=== PATIENT | female | born 1995 | race Caucasian/White ===

== ENCOUNTER → 2020-08-13 | Outpatient (REF) | payer OTHER ==
[2020-08-13 17:19] LABS: HCG, SERUM QUALITATIVE NEGATIVE (NEGATIVE)
[2020-08-13 17:30] LABS: HCG, SERUM QUANTITATIVE < 1.0 MIU/ML
== END ==
LOC: M LAB REF 16:20
PROVIDERS: ATTEND Physician Assistant Medical
DX: Z32.00 Encounter for pregnancy test, result unknown (principal)

== ENCOUNTER 2020-11-29 16:48 | Emergency (ER) | payer OTHER ==
[~2020-11-29] VITALS: Ht 165.1 cm; Wt 107.6 kg
[2020-11-29 16:49] VITALS: BP 137/76
[2020-11-29] MEDS ORDERED: BOOSTRIX/ADACEL VACCINE (DIPHTH/PERTUSS/ACELL/TETANUS) 0.5ML SYR IM ONE (19:55)
--- NOTE | 2020-11-29 21:25 | REPVR ---
PROCEDURE INFORMATION: Exam: XR Left Hand Exam date and time: 11/29/2020 8:04 PM Age: 25 years old Clinical indication: Injury or trauma; Other: Broken glass; Wound; Hand; Left; Additional info: Pain after cut with broken glass, R/O foreign body TECHNIQUE: Imaging protocol: XR Left hand. Views: 3 or more views. COMPARISON: No relevant prior studies available. FINDINGS: Bones/joints: Normal. Soft tissues: Normal. IMPRESSION: No acute findings. Electronically signed by: Tod Weaver On 11/29/2020 21:24:22 PM
== END 2020-11-29 21:26 | disposition home or self-care (01) ==
LOC: M ED 16:48
DX: S60.512A Abrasion of left hand, initial encounter (principal); S80.212A Abrasion, left knee, initial encounter; W25.XXXA Contact with sharp glass, initial encounter; Y92.89 Other specified places as the place of occurrence of the external cause; Y93.9 Activity, unspecified; Y99.0 Civilian activity done for income or pay; F17.290 Nicotine dependence, other tobacco product, uncomplicated

== ENCOUNTER 2021-12-07 10:37 | Inpatient (IN) | payer OTHER ==
[2021-12-07] VITALS (12 sets, daily range): BP systolic 111–148; BP diastolic 62–100
[~2021-12-07] VITALS: Ht 165.1 cm; Wt 122.5 kg
[2021-12-07] MEDS ORDERED: OXYTOCIN DRIP 30 UNITS in IV 1 EA IV PRN ×4 (12:30)
[2021-12-07] MEDS ORDERED: LIDOCAINE 1% MDV 20ML VIAL INFIL PRN (12:30)
[2021-12-07] MEDS ORDERED: TRANEXAMIC ACID INJection 1,000 MG in NS 100 ML IV PRN (12:30)
[2021-12-07] MEDS ORDERED: METHYLERGONOVINE MALEATE 0.2 MG/ML VIAL (J2210) IM PRN (12:30)
[2021-12-07] MEDS ORDERED: CARBOPROST TROMETHAMINE 250 MCG/ML AMP IM PRN (12:30)
[2021-12-07] MEDS ORDERED: OXYTOCIN INJ 10 UNITS/ML VIAL (J2590) IM PRN (12:30)
[2021-12-07] MEDS ORDERED: IRON1TAB2 PO (13:04)
[2021-12-07] MEDS ORDERED: PRENTAB9 PO (13:04)
[2021-12-07] MEDS ORDERED: COLA100C5 PO (13:04)
[2021-12-07] MEDS ORDERED: VITA100T59 PO (13:04)
[2021-12-07] MEDS ORDERED: TUMS500C PO (13:04)
[2021-12-07] MEDS ORDERED: ACET-897 PO (13:04)
[2021-12-07] MEDS ORDERED: LOVE1INJ SC (13:04)
[2021-12-07] MEDS: miSOPROStol 50MCG 1/2 TABLET PO PRN ×2 (13:28→17:47)
[2021-12-07 13:37] LABS: HEMATOCRIT 33.2 % (36.0-47.0); HEMOGLOBIN 11.3 g/dl (12.0-15.5); MEAN CORPUSCULAR VOLUME 88.1 fl (80.0-96.0); PLATELET COUNT, AUTOMATED 218 10^3/uL (150-450); RED BLOOD COUNT 3.77 10^6/uL (4.00-5.40)
[2021-12-07 14:46] LABS: CREATININE,RANDOM URINE 40.5 MG/DL
[2021-12-07] MEDS ORDERED: LR 1,000 ML IV ONE (22:50)
[2021-12-07] MEDS ORDERED: diphenhydrAMINE 50MG/ML VIAL (J1200) IV PRN (23:35)
[2021-12-07] MEDS ORDERED: EPIDURAL/PCA KEYS XX PRN (23:35)
[2021-12-07] MEDS ORDERED: LR 500 ML IV PRN (23:35)
[2021-12-07] MEDS ORDERED: ONDANSETRON 4MG 2ML VIAL IV PRN (23:35)
[2021-12-07] MEDS ORDERED: NALOXONE INJ 0.4MG/1ML VIAL (J2310 PER 1MG) IV PRN (23:35)
[2021-12-07] MEDS ORDERED: FENTANYL 2MCG/ML ROPIVACAINE 0.2% IN 0.9% NACL 100ML IVBAG As Ordered ONE (23:36)
[2021-12-08] VITALS (60 sets, daily range): BP systolic 76–144; BP diastolic 50–86
[2021-12-08] MEDS: FENTANYL/ROPIVACAINE/NACL BAG 100 ML EPIDURAL SCH ×2 (00:32→08:38)
[2021-12-08] MEDS ORDERED: OXYTOCIN DRIP 30 UNITS in IV 1 EA IV SCH ×3 (01:05→13:00)
[2021-12-08] MEDS: LR 1,000 ML IV SCH ×2 (02:04→06:50)
[2021-12-08] MEDS ORDERED: CALCIUM CARBONATE 500 MG CHEW U/D PO ONE (04:00)
[2021-12-08] MEDS: ePHEDrine SULFATE 25 MG/5 ML(5MG/ML) SYRINGE IVP PRN ×3 (04:31→04:39)
[2021-12-08] MEDS ORDERED: DOCUSATE SODIUM 100MG CAPSULE PO PRN (12:25)
[2021-12-08] MEDS ORDERED: ACETAMINOPHEN TAB 650MG DOSE (2X325MG) PO PRN (12:25)
[2021-12-08] MEDS ORDERED: RHOGAM 300 MCG (1500 IU) INJ (J2790) IM SCH (12:25)
[2021-12-08] MEDS ORDERED: DIBUCAINE 1% OINTMENT 30GM TOP PRN (12:25)
[2021-12-08] MEDS ORDERED: TRANEXAMIC ACID INJection 1,000 MG in NS 100 ML IV ONE (12:25)
[2021-12-08] MEDS ORDERED: ANUSOL HC CREAM 30GM TOP PRN (12:25)
[2021-12-08] MEDS ORDERED: ACETAMINOPHEN 500 MG TAB PO PRN (12:25)
[2021-12-08] MEDS ORDERED: OXYTOCIN INJ 10 UNITS/ML VIAL (J2590) IV ONE (12:25)
[2021-12-08] MEDS ORDERED: LR 1,000 ML IV SCH (12:25)
[2021-12-08] MEDS ORDERED: METHYLERGONOVINE MALEATE 0.2 MG TAB PO PRN (12:25)
[2021-12-08] MEDS ORDERED: MOM 30ML SUSPENSION UDC PO PRN (12:25)
[2021-12-08 12:59] LABS: CORD GAS ABE A -5.9; CORD GAS HCO3 A 19.8 MEQ/L; CORD GAS O2 SAT A 69.2 %; CORD GAS PH A 7.313 UNITS; CORD GAS PO2 A 28.4 mmHg; CORD GAS TCO2 A 21.1 MEQ/L
[2021-12-08 13:01] LABS: CORD GAS ABE V -6.5; CORD GAS HCO3 V 19.1 MEQ/L; CORD GAS O2 SAT V 66.3 %; CORD GAS PCO2 V 38.9 mmHg; CORD GAS PH V 7.31 UNITS; CORD GAS PO2 V 27.7 mmHg; CORD GAS SBC V 18.5 MEQ/L; CORD GAS TCO2 V 20.3 MEQ/L
[2021-12-08] MEDS: IBUPROFEN 600MG TAB PO PRN ×2 (15:05→20:58)
[2021-12-09] MEDS: ENOXAPARIN 40MG/0.4ML SYRINGE (J1650 PER 10MG) SC SCH (00:53)
[2021-12-09 06:00] VITALS: BP 119/75
[2021-12-09] MEDS: IBUPROFEN 600MG TAB PO PRN ×3 (06:01→21:54)
[2021-12-09 08:16] LABS: HEMATOCRIT 32.4 % (36.0-47.0); HEMOGLOBIN 10.7 g/dl (12.0-15.5); MEAN CORPUSCULAR HEMOGLOBIN 30.1 pg (27.0-33.0); MEAN CORPUSCULAR VOLUME 91.3 fl (80.0-96.0); PLATELET COUNT, AUTOMATED 180 10^3/uL (150-450); RED BLOOD COUNT 3.55 10^6/uL (4.00-5.40); WHITE BLOOD COUNT 11.9 10^3/uL (4.0-10.0)
[2021-12-09] MEDS: PRENATAL VITAMINS CHEWABLE TABLET PO SCH (09:54)
[2021-12-09 18:05] VITALS: BP 131/71
[2021-12-10] MEDS: ENOXAPARIN 40MG/0.4ML SYRINGE (J1650 PER 10MG) SC SCH (00:37)
[2021-12-10 06:00] VITALS: BP 140/83
[2021-12-10] MEDS: IBUPROFEN 600MG TAB PO PRN (06:01)
[2021-12-10] MEDS ORDERED: IBUP-1022 PO (07:02)
[2021-12-10] MEDS ORDERED: LOVE1INJ SC (07:02)
[2021-12-10] MEDS ORDERED: MEASLES,MUMPS,RUBELLA VACCINE INJ (MMR-II) (90707) SC.IMMUN ONE (09:00)
[2021-12-10] MEDS: PRENATAL VITAMINS CHEWABLE TABLET PO SCH (10:13)
== END 2021-12-10 18:55 | disposition home or self-care (01) | DRG 807 ==
LOC: M LDI 11:46 → M OBS 12-08 14:26
PROVIDERS: ADMIT Obstetrics & Gynecology; ATTEND Obstetrics & Gynecology
PROC: 3E0P7GC Introduction of Other Therapeutic Substance into Female Reproductive, Via Natural or Artificial Opening (ICD-10-PCS; 2021-12-07)
PROC: 0HQ9XZZ Repair Perineum Skin, External Approach (ICD-10-PCS; 2021-12-07)
PROC: 10E0XZZ Delivery of Products of Conception, External Approach (ICD-10-PCS; principal; 2021-12-08)
DX: O13.4 Gestational [pregnancy-induced] hypertension without significant proteinuria, complicating childbirth (principal); Z37.0 Single live birth; Z86.711 Personal history of pulmonary embolism; O99.214 Obesity complicating childbirth; E66.9 Obesity, unspecified; Z79.01 Long term (current) use of anticoagulants; Z79.899 Other long term (current) drug therapy; O69.2XX0 Labor and delivery complicated by other cord entanglement, with compression, not applicable or unspecified; O70.0 First degree perineal laceration during delivery; O69.81X0 Labor and delivery complicated by cord around neck, without compression, not applicable or unspecified; Z3A.37 37 weeks gestation of pregnancy